=== PATIENT | female | born 1955 | race Caucasian/White ===

== ENCOUNTER 2020-08-08 01:36 | Inpatient (IN) | payer MEDICARE ==
[~2020-08-08] VITALS: Ht 162.6 cm; Wt 129.6 kg
--- NOTE | 2020-08-08 01:51 | NUR ---
JESSICA as tx from [place]. Per EMS/pt, pt had gallbladder removed 07/06. Sudden onset, atraumatic non-radiating mid umbilicus pain with associated nausea and emesis x1 at approx 1300 yesterday. Per pt, she had unwitnessed syncopal episode shortly after pain began. (+) head strike, (-) thinners. Head CT completed at OSH. Upon arrival to ED, pt states pain has resolved. A&o x4, answering questions appropriately. Denies N/V/D. Denies fever/chills. Incisions appear to be healing properly. Provider at bedside upon arrival
[2020-08-08] MEDS ORDERED: LISI40TA PO (02:21)
[2020-08-08] MEDS ORDERED: GLIM1TAB7 PO (02:21)
[2020-08-08] MEDS ORDERED: OMEP-110 PO (02:21)
[2020-08-08] MEDS ORDERED: TRAM50TA2 PO (02:22)
[2020-08-08] MEDS ORDERED: LACTATED RINGERS 1,000 ML IVBOLUS ONE (02:30)
--- NOTE | 2020-08-08 02:44 | NUR ---
Hospitalist at bedside
--- NOTE | 2020-08-08 02:48 | NUR ---
Report given to Faye OLGUIN
[2020-08-08] MEDS ORDERED: morphine SULFATE 10 MG/ML, 1ML IVPush PRN (03:30)
[2020-08-08] MEDS ORDERED: PHARMACY MAY ADJ FOR RENAL FX MC PRN (03:30)
[2020-08-08] MEDS ORDERED: ONDANSETRON 2MG/ML, 2ML IVPush PRN (03:30)
[2020-08-08] MEDS ORDERED: LABETALOL 5MG/ML, 20ML IVPush PRN (03:30)
[2020-08-08] MEDS ORDERED: ACETAMINOPHEN 325 MG TABLET PO PRN (03:30)
--- NOTE | 2020-08-08 03:55 | NUR ---
Pt was upgraded from med to med tele. Report given to Kyra OLGUIN. Pt remains a&o x4. NSR noted on monitor. Denies pain
[2020-08-08 04:54] VITALS: BP 128/74
[2020-08-08] MEDS: SODIUM CHLORIDE 0.9% 1,000 ML IV SCH ×2 (05:28→16:51)
[2020-08-08] MEDS: PIPERACILLIN/TAZO/PMX 3.375GM 50 ML IV SCH ×3 (05:54→16:51)
[2020-08-08 06:24] LABS: ALANINE AMINOTRANSFERASE 589 U/L (12-78); ALBUMIN 3.1 g/dL (3.4-5.0); ANION GAP 4 mmol/L (5-15); BASOPHILS % (AUTO) 0 % (0-1); CALCIUM 8.5 mg/dL (8.5-10.1); CHLORIDE 108 mmol/L (98-107); CREATININE 2.14 mg/dL (0.55-1.02); EOSINOPHILS % (AUTO) 2 % (1-7); LYMPHOCYTES % (AUTO) 23 % (22-44); MEAN CORPUSCULAR HEMOGLOBIN 28.3 pg (27.0-34.8); MEAN CORPUSCULAR HGB CONC 32.7 g/dL (32.4-35.8); MONOCYTES % (AUTO) 9 % (2-9); NEUTROPHILS % (AUTO) 66 % (42-75); PLATELET COUNT 242 x10^3/uL (130-400); RED BLOOD COUNT 4.26 x10^6/uL (3.82-5.3); RED CELL DISTRIBUTION WIDTH 13.7 % (9.6-15.2)
[2020-08-08 06:27] LABS: ALKALINE PHOSPHATASE 228 U/L (45-117); BILIRUBIN,TOTAL 1.3 mg/dL (0.2-1.0); TOTAL PROTEIN 6.8 g/dL (6.4-8.2)
[2020-08-08] MEDS: INSULIN LISPRO 100 UNITS/ML, PEN SQ-INSULIN SCH ×5 (06:42→22:09)
[2020-08-08 06:52] LABS: MD NO
[2020-08-08 07:07] VITALS: BP 103/68
[2020-08-08] MEDS: SENNA/DOCUSATE TABLET PO SCH (09:00)
[2020-08-08 13:12] VITALS: BP 94/61
[2020-08-08 20:26] VITALS: BP 107/69
[2020-08-09] MEDS: PIPERACILLIN/TAZO/PMX 3.375GM 50 ML IV SCH ×3 (00:27→11:18)
[2020-08-09 00:43] VITALS: BP 101/69
[2020-08-09] MEDS: SODIUM CHLORIDE 0.9% 1,000 ML IV SCH ×2 (02:57→11:00)
[2020-08-09 04:05] LABS: BASOPHILS % (AUTO) 0 % (0-1); EOSINOPHILS % (AUTO) 2 % (1-7); LYMPHOCYTES % (AUTO) 26 % (22-44); MEAN CORPUSCULAR HEMOGLOBIN 28.8 pg (27.0-34.8); MEAN CORPUSCULAR HGB CONC 32.7 g/dL (32.4-35.8); MEAN PLATELET VOLUME 8.8 fL (7.4-10.4); MONOCYTES % (AUTO) 9 % (2-9); NEUTROPHILS % (AUTO) 63 % (42-75); PLATELET COUNT 228 x10^3/uL (130-400); RED BLOOD COUNT 3.89 x10^6/uL (3.82-5.3); RED CELL DISTRIBUTION WIDTH 13.7 % (9.6-15.2)
[2020-08-09 04:10] LABS: MD NO
[2020-08-09 04:16] LABS: ALBUMIN 2.9 g/dL (3.4-5.0); ANION GAP 6 mmol/L (5-15); CALCIUM 8.8 mg/dL (8.5-10.1); CHLORIDE 114 mmol/L (98-107)
[2020-08-09 04:21] LABS: ALANINE AMINOTRANSFERASE 361 U/L (12-78); ALKALINE PHOSPHATASE 184 U/L (45-117); BILIRUBIN,TOTAL 0.9 mg/dL (0.2-1.0); CREATININE 1.54 mg/dL (0.55-1.02); TOTAL PROTEIN 6.4 g/dL (6.4-8.2)
[2020-08-09 07:10] VITALS: BP 95/57
[2020-08-09] MEDS: INSULIN LISPRO 100 UNITS/ML, PEN SQ-INSULIN SCH (07:23)
[2020-08-09] MEDS: SENNA/DOCUSATE TABLET PO SCH (07:24)
[2020-08-09 12:15] VITALS: BP 134/84
== END 2020-08-09 17:46 | disposition home or self-care (01) | DRG 438 ==
LOC: ED 02:31 → EDIP 03:10 → 4WST 04:50
PROVIDERS: ADMIT Family Medicine; ATTEND Hospitalist
DX: K85.90 Acute pancreatitis without necrosis or infection, unspecified (principal); N17.0 Acute kidney failure with tubular necrosis; K83.1 Obstruction of bile duct; Z68.42 Body mass index [BMI] 45.0-49.9, adult; R74.01 Elevation of levels of liver transaminase levels; E66.01 Morbid (severe) obesity due to excess calories; Z90.49 Acquired absence of other specified parts of digestive tract; Z82.49 Family history of ischemic heart disease and other diseases of the circulatory system; E11.9 Type 2 diabetes mellitus without complications
CPT/HCPCS: 36415; 78226; 80053; 82962; 83036; 83690; 85025; 93005; G0378; J2543; A9537; C9898; J1815; J7030